=== PATIENT | female | born 2000 | race Caucasian/White ===

== ENCOUNTER 2022-01-11 10:00 | Outpatient (CLI) | payer OTHER, MEDICAID, SELFPAY ==
--- NOTE | 2022-01-11 10:10 | US_ITS ---
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 Presentation: Variable Cervix: Closed and normal length. Cervical length 3.6 cm. Placenta: Posterior, no previa or abruption. Placenta ends 1.8 cm from the internal cervical os. Low- lying but anticipate migration as progresses. Grade: 0 HEART: FHR of 157 BPM. measurements: BPD = 2.5 cm = 14w2d HC = 9.8 cm = 14w4d AC = 8.4 cm = 14w5d FL = 1.5 cm = 14w2d AGA by ultrasound: 14w4d ISHAN by ultrasound: 07/08/2022 US/US OB <= 14 weeks fetus [id number] IMPRESSION: 1. Single intrauterine gestation of 14 weeks 4 days with an EDC of 07/08/2022. 2. Normal cardiac activity.
== END 2022-01-11 10:01 | disposition home or self-care (01) ==
PROVIDERS: PCP Family Medicine; Visit Provider Family Medicine
DX: Z34.92 Encounter for supervision of normal pregnancy, unspecified, second trimester (principal); Z3A.14 14 weeks gestation of pregnancy
CPT/HCPCS: 76801

== ENCOUNTER 2022-02-24 07:07 | Outpatient (CLI) | payer OTHER, MEDICAID, SELFPAY ==
--- NOTE | 2022-02-24 07:11 | US_ITS ---
WS: [id number] OBSTETRICAL ULTRASOUND COMPLETE HISTORY: ANATOMY CHECK COMPARISON: 01/11/2022 Single intrauterine gestation in Cephalic presentation. Cervix is Closed and normal length. Cervical length is 4.3 cm. Normal amount of amniotic fluid surrounds the fetus. Placenta: Posterior, no previa or abruption. Placenta grade 1 Heart: 160 BPM. 4 chambers are identified. The patent foramen ovale appears awfully large. There may be an underlying ASD. Outflow tracts are also poorly delineated. Anatomy: Intracranial structures and spine are normal. kidneys, stomach and urinary bladd er are unremarkable. Abdominal wall, three-vessel cord and cord insertion site are normal. 4 extremities are present. profile: Unremarkable. Gender: Male. measurements: BPD = 4.9 cm = 20w6d HC = 18.4 cm = 20w5d AC = 15.8 cm = 20w6d FL = 3.4 cm = 20w5d EFW: 380 g. Biometry is internally concordant. AGA by ultrasound: 20w6d ISHAN by ultrasound: 07/08/2022 US/US OB >= 14 weeks fetus [id number] IMPRESSION: 1. Single intrauterine gestation of 20w6d with an ISHAN of 07/08/2022. Appropria te growth since the first trimester ultrasound. No growth asymmetry. 2. Suboptimal evaluation of the heart. Recommend short-term reevaluation of th e heart. The patent foramen ovale appears large. Underlying ASD should be considered. Also, the cardiac outflow tracts are not well delineated. 3. The remaining anatomy is negative.
== END 2022-02-24 07:08 | disposition home or self-care (01) ==
LOC: RAD 07:07
PROVIDERS: PCP Family Medicine; Visit Provider Family Medicine
DX: Z3A.20 20 weeks gestation of pregnancy; Z34.82 Encounter for supervision of other normal pregnancy, second trimester
CPT/HCPCS: 76805